=== PATIENT | female | born 2000 | race Caucasian/White ===

== ENCOUNTER 2023-09-27 14:36 | Outpatient (CLI) | payer BC, SELFPAY | END 2023-09-27 14:37 | disposition home or self-care (01) | LOC: NFLDREF 14:37 | PROVIDERS: Visit Provider Obstetrics & Gynecology | DX: O02.1 Missed abortion (principal) | CPT/HCPCS: 84702 ==

== ENCOUNTER 2023-10-05 16:52 | Outpatient (CLI) | payer BC, SELFPAY | END 2023-10-05 16:53 | disposition home or self-care (01) | LOC: NFLDREF 10-26 03:24 | PROVIDERS: Visit Provider Obstetrics & Gynecology | DX: O02.1 Missed abortion (principal) | CPT/HCPCS: 84702 ==

== ENCOUNTER 2023-10-12 16:33 | Outpatient (CLI) | payer BC, SELFPAY | END 2023-10-12 16:34 | disposition home or self-care (01) | LOC: NFLDREF 10-13 07:21 | PROVIDERS: Visit Provider Obstetrics & Gynecology | DX: O02.0 Blighted ovum and nonhydatidiform mole (principal); O02.1 Missed abortion | CPT/HCPCS: 84702 ==

== ENCOUNTER 2024-06-02 09:35 | Outpatient (CLI) | payer BC, SELFPAY ==
[2024-06-04 20:27] LABS: HPV Source Cervix; HPV, High Risk by TMA Not Detected
== END 2024-06-02 09:36 | disposition home or self-care (01) ==
PROVIDERS: Visit Provider Obstetrics & Gynecology
DX: E03.8 Other specified hypothyroidism (principal); N93.9 Abnormal uterine and vaginal bleeding, unspecified; Z13.6 Encounter for screening for cardiovascular disorders; Z12.4 Encounter for screening for malignant neoplasm of cervix; Z31.69 Encounter for other general counseling and advice on procreation
CPT/HCPCS: 80061; 84439; 84443; 84703; 86376; 87624; 87625; 88141; 88142

== ENCOUNTER 2024-07-20 08:20 | Outpatient (CLI) | payer BC, SELFPAY | END 2024-07-20 08:21 | disposition home or self-care (01) | LOC: NFLDREF 07-21 07:48 | PROVIDERS: Visit Provider Obstetrics & Gynecology | DX: E03.8 Other specified hypothyroidism (principal); N92.6 Irregular menstruation, unspecified; Z31.69 Encounter for other general counseling and advice on procreation | CPT/HCPCS: 84443 ==

== ENCOUNTER 2024-10-25 08:22 | Outpatient (CLI) | payer BC, SELFPAY | END 2024-10-25 08:23 | disposition home or self-care (01) | PROVIDERS: Visit Provider Registered Nurse | DX: N91.5 Oligomenorrhea, unspecified (principal); E03.8 Other specified hypothyroidism | CPT/HCPCS: 82670; 83001; 84146; 84443 ==

== ENCOUNTER 2025-05-08 14:59 | Outpatient (CLI) | payer BC, SELFPAY ==
--- NOTE | 2025-05-08 15:00 | CRLHL7_ITS ---
For Patients: As a result of the Cures Act, medical imaging exams and procedure reports are released immediately into your electronic medical record. You may view this report before your referring provider. If you have questions, please contact your health care provider. OB ULTRASOUND INDICATION: Dating and viability. TECHNIQUE: Real time brumfield scale imaging of the fetus was performed. Transvaginal imaging performed. LMP: 03/06/2025. RACHEL by LMP: 12/11/2025. GA: 9 w, 0 d. Previous US: No. CRL: 2.5 cm. 9 w 1 d. RACHEL: 12/10/2025. FHR: 176 BPM. Gestational sac: 3.7 cm. Appears within normal limits. Yolk sac: 4.5 mm. Appears within normal limits. Right ovary: Within normal limits. 2.9 x 4.0 x 3.0 cm. CL. Left ovary: Within normal limits. 2.2 x 3.3 x 2.6 cm. IMPRESSION: 1) Single living intrauterine measures 9 weeks 1 day. 2) Sonographic due date 12/10/2025. CHAY BARBOUR M.D. Diagnostic Radiologist [email or web address] DW/Dictated by: Chay Barbour MD @ 05/12/2025 10:37:00 PM (Electronically Signed)
== END 2025-05-08 15:00 | disposition home or self-care (01) ==
LOC: US 14:59
PROVIDERS: Visit Provider Registered Nurse
DX: Z34.91 Encounter for supervision of normal pregnancy, unspecified, first trimester (principal); Z3A.09 9 weeks gestation of pregnancy; E03.8 Other specified hypothyroidism; F12.91 Cannabis use, unspecified, in remission
CPT/HCPCS: 76817; 80306; 83021; 84443; 86703; 86704; 86706; 86762; 86780; 86787; 86803; 86850; 86900; 86901; 87086; 87340; 87491; 87591

== ENCOUNTER 2025-05-08 16:04 | Outpatient (CLI) | payer BC, SELFPAY ==
[2025-05-08 21:13] LABS: Chlamydia DNA Amplified* NOT DETECTED (No Detected); GC DNA Amplified* NOT DETECTED (No Detected)
== END 2025-05-08 16:05 | disposition home or self-care (01) ==
PROVIDERS: Visit Provider Registered Nurse
DX: Z34.91 Encounter for supervision of normal pregnancy, unspecified, first trimester (principal); E03.8 Other specified hypothyroidism; F12.91 Cannabis use, unspecified, in remission
CPT/HCPCS: 80306; 83020; 83021; 84443; 85660; 86703; 86704; 86706; 86762; 86780; 86787; 86803; 86850; 86900; 86901; 87086; 87340; 87491; 87591